=== PATIENT | male | born 1960 | race Caucasian/White ===

== ENCOUNTER 2020-02-05 14:09 | Emergency (ER) | payer OTHER, SELFPAY ==
[2020-02-05] VITALS (10 sets, daily range): BP systolic 131–184; BP diastolic 57–84; PULSE 69–90; RESP 16–40; TEMP 37.1; O2SAT 96–99; BMI 21.5
[2020-02-05 15:07] LABS: COVID19 -Nasal RAPID Negative (Negative)
[2020-02-05 15:09] LABS: Add Manual Diff / Slide Review NO; Basophils Absolute Auto 0 /uL (0-100); Basophils Percent Auto 0.6 % (0-2); Eosinophils Absolute Auto 100 /uL (0-450); Eosinophils Percent Auto 1.3 % (2-4); Hematocrit 41.6 % (41-53); Lymphocytes Absolute Auto 2600 /uL (1100-4500); Lymphocytes Percent Auto 43.1 % (25-40); Mean Corpuscular HGB Conc 33.6 % (30-36); Mean Corpuscular Hemoglobin 33.7 PG (26-34); Mean Corpuscular Volume 100.4 fL (80-100); Monocytes Absolute Auto 500 /uL (0-900); Monocytes Percent Auto 8.7 % (3-14); Neutrophils Absolute Auto 2800 /uL (1500-7000); Neutrophils Percent Auto 46.3 % (50-75); Platelet Count 93 X10^3/uL (150-400); Red Blood Cell Count 4.14 X10^6/uL (4.5-5.9); Red Cell Distribution Width 13.7 % (11.6-14.8)
[2020-02-05 15:19] LABS: Alanine Aminotransferase 297 IU/L (<50); Albumin 4.2 g/dL (3.5-5.0); Albumin Globulin Ratio 1.1 (1.0-2.8); Alkaline Phosphatase 114 U/L (38-126); Aspartate Aminotransferase 241 IU/L (17-59); BUN Creatinine Ratio 18.1 (6-22); Bilirubin Total 0.9 mg/dL (0.2-1.3); Blood Urea Nitrogen 17 mg/dL (9-20); Calcium 8.6 mg/dL (8.4-10.2); Carbon Dioxide 24 mmol/L (22-32); Chloride 108 mmol/L (98-107); Estimated Glomerular Filt Rate > 60.0 mL/min (>60); Globulin 3.8 g/dL (1.7-4.1); Glucose 208 mg/dL (70-100); HEMOLYSIS < 15 (0-50); Lipase 40 U/L (23-300); Potassium 3.7 mmol/L (3.4-5.1); Sodium 139 mmol/L (137-145)
--- NOTE | 2020-02-05 15:28 | ED_ITS ---
HPI - General Adult General Chief complaint: Abdominal Pain Stated complaint: stomach pain//side pain Time Seen by Provider: 02/05/20 14:15 Source: patient Mode of arrival: Ambulatory Limitations: no limitations History of Present Illness HPI narrative: 59-year-old male here for evaluation of several months of diarr hea and also 3-4 weeks of left-sided flank pain. He states that the diarrhea does not seem to improve with anything that he eats. He has not tried any anti diarrheal medications. He has not been on antibiotics. No recent travel. No fevers. His left-sided flank pain has been going on for the past several weeks. He has not tried anything for it. He has no rashes. States that does not change with movement or palpation or bowel movements. Also has other issues that all have been going on for weeks now to include loss of taste and weight loss that has been going on for months. Does not have a primary doctor in the local area. Related Data Previous Rx's Medication Instructions Recorded lidocaine 1 patch TOP DAILY #15 each 02/05/20 Allergies Allergy/AdvReac Type Severity Reaction Status Date / Time No Known Allergies Allergy Verified 02/05/20 15:50 Review of Systems Constitutional Constitutional: Reports fatigue, Denies fever(s) and Denies headache(s) Eyes Eyes: Denies change in vision ENT Ears, Nose, Mouth, and Throat: Denies headache(s), Denies sore throat and Denies throat swelling Comments: Loss of taste Cardiovascular Cardiovascular: Denies chest pain and Denies dyspnea Respiratory Respiratory: Denies dyspnea Gastrointestinal Gastrointestinal: Reports abdominal pain, Reports diarrhea, Denies nausea and Denies vomiting Genitourinary Genitourinary: Denies dysuria, Denies urinary hesitancy and Denies urinary incontinence Genitourinary: Denies dysuria, Denies urinary incontinence and Denies urinary hesitancy Musculoskeletal Comments: Left-sided flank pain Integumentary/Breasts Skin/Breast: Denies lesions and Denies rash Neurologic Neurologic: Denies behavioral changes and Denies headache(s) Psychiatric Psychiatric: Denies behavioral changes Endocrine Endocrine: Reports fatigue Hematologic/Lymphatic Hematologic/Lymphatic: Denies easy bleeding and Denies easy bruising Allergic/Immunologic Allergic/Immunologic: Denies throat swelling Patient History Medical History Diabetes (Acute) Social History lives independently: Yes Exam Initial Vital Signs Initial Vital Signs: Vital Signs Temperature 98.7 F 02/05/20 14:37 Pulse Rate 90 02/05/20 14:37 Respiratory Rate 16 02/05/20 14:37 Blood Pressure 163/81 H 02/05/20 14:37 Pulse Oximetry 99 02/05/20 14:37 Const General: cooperative Limitations: mental status not altered HENMD Head: normal to inspection and normocephalic Chest Chest: No crepitus and No tenderness Resp Effort & Inspection: normal respiratory effort Auscultation: clear to auscultation bilaterally Cardio Rate: regular rate Rhythm: regular rhythm GI Inspection: non-distended Palpation: soft and tender (Left upper quadrant/left flank) Back/Spine/Pelvis Back: CVA tenderness left Skin Lesions: no lesions Rashes: no rashes Neuro General: patient alert and patient awake Cognition: normal cognition Speech: speech normal Extrem General: normal to inspection and capillary refill normal Psych Appearance: grossly normal and well kempt Scores GCS Francoise coma scale eye opening: Spontaneous [place] coma scale verbal response: Orientated [place] coma scale motor response: Obey commands Francoise coma scale total score: 15 Course Orders Ordered: ED Orders 02/05/20 14:10 COVID19 Stat 02/05/20 14:49 Complete Blood Count AUTO DIFF Stat 02/05/20 15:00 Comprehensive Metabolic Panel Stat Lipase Stat 02/05/20 15:29 CT abdomen pelvis w con Stat XR chest 1V Stat 02/05/20 16:30 EKG-12 Lead Stat Discontinued Medications Hydromorphone HCl (Dilaudid) 1 mg IV NOW ONE Stop: 02/05/20 15:30 Last Admin: 02/05/20 15:55 Dose: 1 mg Documented by: CHRISSY Sodium Chloride (Normal Saline 0.9%) 1,000 mls @ 1,000 mls/hr IV BOLUS ONE Stop: 02/05/20 16:28 Last Infusion: 02/05/20 17:00 Dose: 0 mls/hr Documented by: Admin: 02/05/20 15:56 Dose: 1,000 mls/hr Documented by: CHRISSY Ondansetron HCl (Zofran) 4 mg IV NOW ONE Stop: 02/05/20 15:30 Last Admin: 02/05/20 15:55 Dose: 4 mg Documented by: CHRISSY Vital Signs Vital signs: Vital Signs - 8 hr 02/05/20 14:37 02/05/20 14:53 02/05/20 15:00 Temperature 98.7 F Pulse Rate 90 82 82 Respiratory Rate 16 26 H 28 H Blood Pressure 163/81 H 131/57 L Pulse Oximetry 99 97 96 02/05/20 15:30 02/05/20 15:34 02/05/20 15:51 Temperature Pulse Rate 77 82 Respiratory Rate 26 H 40 H Blood Pressure 157/76 H 165/80 H Pulse Oximetry 02/05/20 16:00 02/05/20 16:30 02/05/20 17:00 Temperature Pulse Rate 78 69 71 Respiratory Rate 23 23 33 H Blood Pressure 160/80 H 144/84 H Pulse Oximetry 99 96 02/05/20 17:01 Temperature Pulse Rate 71 Respiratory Rate 27 H Blood Pressure 184/84 H Pulse Oximetry Medical Decision Making Lab Data Lab results reviewed: Yes I reviewed the patient's lab results. Result diagrams: 02/05/20 14:49 02/05/20 15:00 Labs: Lab Results 02/05/20 02/05/20 02/05/20 Range/Units 14:10 14:49 15:00 WBC 6.0 (4.5-11.0) X10^3/uL RBC 4.14 L (4.5-5.9) X10^6/uL Hgb 14.0 (13.5-17.5) g/dL Hct 41.6 (41-53) % MCV 100.4 H (80-100) fL MCH 33.7 (26-34) PG MCHC 33.6 (30-36) % RDW 13.7 (11.6-14.8) % Plt Count 93 L (150-400) X10^3/uL Neut % (Auto) 46.3 L (50-75) % Lymph % (Auto) 43.1 H (25-40) % [place] % (Auto) 8.7 (3-14) % Eos % (Auto) 1.3 L (2-4) % Baso % (Auto) 0.6 (0-2) % Neut # (Auto) 2800 (1436-4821) /uL Lymph # (Auto) 2600 (9908-9078) /uL [place] # (Auto) 500 (0-900) /uL Eos # (Auto) 100 (0-450) /uL Baso # (Auto) 0 (0-100) /uL Sodium 139 (137-145) mmol/L Potassium 3.7 (3.4-5.1) mmol/L Chloride 108 H (98-107) mmol/L Carbon Dioxide 24 (22-32) mmol/L BUN 17 (9-20) mg/dL Creatinine 0.94 (0.66-1.25) mg/dL Estimated GFR > 60.0 (>60) mL/min BUN/Creatinine Ratio 18.1 (6-22) Glucose 208 H (70-100) mg/dL Calcium 8.6 (8.4-10.2) mg/dL Total Bilirubin 0.9 (0.2-1.3) mg/dL AST 241 H (17-59) IU/L ALT 297 H (<50) IU/L Alkaline Phosphatase 114 (38-126) U/L Total Protein 8.0 (6.3-8.2) g/dL Albumin 4.2 (3.5-5.0) g/dL Globulin 3.8 (1.7-4.1) g/dL Albumin/Globulin Ratio 1.1 (1.0-2.8) Lipase 40 (23-300) U/L COVID-19 PCR Negative (Negative) Urine Dip Bedside Urine Glucose Negative Bedside Urine Bilirubin - Negative Bedside Urine Ketone +/- 5 Urine Specific [place] 1.030 Bedside Urine Occult Blood +++ Bedside Urine pH 6.0 Bedside Urine Protein ++ 100 Bedside Urine Urobilinogen - Negative Bedside Urine Nitrite - Negative Bedside Urine Leukocytes - Negative Esterase Point of care testing: Urine Dip Bedside Urine Glucose Negative Bedside Urine Bilirubin - Negative Bedside Urine Ketone +/- 5 Urine Specific [place] 1.030 Bedside Urine Occult Blood +++ Bedside Urine pH 6.0 Bedside Urine Protein ++ 100 Bedside Urine Urobilinogen - Negative Bedside Urine Nitrite - Negative Bedside Urine Leukocytes - Negative Esterase Imaging Data CT scan - abdomen/pelvis: Radiologist's Impression: [address] [address] [address] Scan Report Signed Patient: Jazmin MatthewsHair#: [id number] : [id number]:[id number] Age/Sex: 59 / MDate of Service: 02/05/20 Loc: ED Accession Number: [id number] Procedure: CT abdomen pelvis w con Ordering Provider: Jet Ace D.O. PROCEDURE: CT ABDOMEN PELVIS W CON INDICATIONS: Left-sided abdominal pain TECHNIQUE: After the administration of intravenous contrast, 5 mm thick sections acquired from the diaphragm to the symphysis. 5 mm coronal and sagittal reformats were acquired. For radiation dose reduction, the following was used: automated exposure control, adjustment of mA and/or kV according to patient size. COMPARISON: None. FINDINGS: Image quality: Excellent. ABDOMEN: Lung bases: Lung bases are clear. Heart size is normal. [id number] atherosclerotic seen. Solid organs: Liver is enlarged with hepatic steatosis. No discrete hepatic lesion. Gallbladder is surgically absent.. Biliary system is non dilated. Pancreas enhances normally. Spleen is normal in size and enhancement. No adrenal nodules. Kidneys demonstrate normal size and enhancement, without hydronephrosis. Tiny bilateral nonobstructing renal calculi are seen measures up to 3 mm in size. Peritoneum and bowel: There is no bowel obstruction. Questionable wall thickening involving ascending colon and transverse colon is seen. Mild wall thickening involving proximal to mid portion of descending colon is also noted. Finding may be due to under distension versus infectious or inflammatory colitis. No abscess collection. No free fluid or free air. No evidence of acute appendicitis or diverticulitis. Nodes and vessels: No retroperitoneal or mesenteric adenopathy by size criteria. Aorta and inferior vena cava are normal in size. Miscellaneous: No ventral hernias. PELVIS: Genitourinary: Bladder wall thickness is normal. Miscellaneous: No inguinal hernias or adenopathy. Bones: No suspicious bony lesions. No vertebral body compression fractures. IMPRESSION: 1. Questionable colonic wall thickening predominantly involving ascending colon, transverse colon and proximal to mid descending colon which may be due to under distension. Low-grade infectious inflammatory colitis cannot be excluded. No e vidence of acute appendicitis or diverticulitis. No free fluid or free air. No bowel obstruction. 2. Hepatomegaly and mild hepatic steatosis. No discrete hepatic lesion. 3. Patient is status post cholecystectomy. Dictated by: Cesario García M.D. on 02/05/2020 at 15:07 Approved by: Cesario García M.D. on 02/05/2020 at 15:11 Chest x-ray: Radiologist's Impression: [address] [address] XRay Report Signed Patient: Deng Matthews#: [id number] : 2Acct:[id number] Age/Sex: 59 / MDate of Service: 02/05/20 Loc: ED Accession Number: [id number] Procedure: XR chest 1V Ordering Provider: Jet Ace D.O. PROCEDURE: XR CHEST 1V INDICATIONS: Left lower chest pain TECHNIQUE: One view of the chest was acquired. COMPARISON: None. FINDINGS: Surgical changes and devices: None. Lungs and pleura: Lungs are clear. No pleural effusions or pneumothorax. Mediastinum: Mediastinal contours appear normal. Heart size is normal. Bones and chest wall: No suspicious bony lesions. Overlying soft tissues appear unremarkable. IMPRESSION: No acute cardiopulmonary pathology. Dictated by: Cesario García M.D. on 02/05/2020 at 15:05 Approved by: Cesario García M.D. on 02/05/2020 at 15:06 ECG Data Attestation: I personally reviewed and interpreted this ECG as follows: Prior ECG tracings: not available for review Interpretation: Sinus rhythm Ventricular rate is 70 Normal axis Normal QRS Normal QTC No ST T wave changes MDM Narrative Medical decision making narrative: Patient did have fairly significant left- sided flank pain and left upper quadrant pain. He seemed to have tenderness with only very light touch to the area. This did make a somewhat concerned about zoster however there is no rash in the area. Also his symptoms been going on for several weeks now. CT scan of his abdomen does show what appears to be a colitis. This is also not new. I feel we can hold on antibiotics. We did discuss use of anti diarrheal medications. The rest of his exam is fairly unremarkable. No indication for antibiotics. No indication for surgical cons ultation. I did inform him that if he was going to be in this area for a prolonged period time he should establish a primary provider. If he is going to return home and eats a talk with his primary provider about following up with Gastroenterology. The expressed understanding and agreement. Discharge Plan Departure Patient Disposition: Home Clinical Impression: Colitis, Acute left flank pain Discharge Date/Time: 02/05/20 17:42 Instructions: DI for Colitis Activity Restrictions/Additional Instructions: I do feel that you to help with your issues that you are having an to refer you to a team truck driver. If you are going to spend any more extended time here in the local area you can contact [phone] help you establish a primary provider. Use the lidocaine patches as needed. I also recommend that you consider using an anti diarrheal medicine such as loperamide/Imodium. You can purchase this [id number]. Return emergency department for any new or worsening symptoms with Prescriptions: New lidocaine 5 % adhesive patch,medicated 1 patch TOP DAILY Qty: 15 RF: 0
[2020-02-05] MEDS: HYDROMORPHONE 1 MG INJ IV (15:55)
[2020-02-05] MEDS: ONDANSETRON 4 MG/2 ML INJ IV (15:55)
[2020-02-05] MEDS: SODIUM CHLORIDE 0.9% 1,000 ML 1000 ML IV (15:56)
== END 2020-02-05 17:42 | disposition home or self-care (01) ==
PROVIDERS: Emergency Provider Emergency Medicine
DX: K52.9 Noninfective gastroenteritis and colitis, unspecified (principal); R10.12 Left upper quadrant pain; R53.83 Other fatigue; R07.9 Chest pain, unspecified
CPT/HCPCS: 36415; 71045; 74177; 80053; 81003; 83690; 85025; 87635; 93005; 96361; 96374; 96375; 99284; J1170; J2405; Q9967

== ENCOUNTER 2020-05-31 20:55 | Observation (INO) | payer OTHER, SELFPAY ==
[2020-05-31] VITALS (19 sets, daily range): BP systolic 158–241; BP diastolic 84–114; PULSE 66–85; RESP 14–44; TEMP 37.4; O2SAT 95–99; BMI 23.0
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
[2020-05-31] MEDS: ONDANSETRON 4 MG/2 ML INJ (21:08)
[2020-05-31] MEDS: LACTATED RINGERS 2,259 ML 753 ML IV (21:09)
[2020-05-31 21:16] LABS: INR 1.1 (0.9-1.3); Prothrombin Time 12.8 SECONDS (10.1-12.7)
[2020-05-31 21:19] LABS: Add Manual Diff / Slide Review NO; Basophils Absolute Auto 0 /uL (0-100); Basophils Percent Auto 0.2 % (0-2); Eosinophils Absolute Auto 0 /uL (0-450); Hematocrit 42.2 % (41-53); Hemoglobin 14.3 g/dL (13.5-17.5); Lymphocytes Absolute Auto 1800 /uL (1100-4500); Lymphocytes Percent Auto 21.4 % (25-40); Mean Corpuscular HGB Conc 33.9 % (30-36); Mean Corpuscular Hemoglobin 33.4 PG (26-34); Mean Corpuscular Volume 98.6 fL (80-100); Monocytes Absolute Auto 600 /uL (0-900); Monocytes Percent Auto 7.4 % (3-14); Neutrophils Absolute Auto 5800 /uL (1500-7000); Platelet Count 122 X10^3/uL (150-400); Red Blood Cell Count 4.28 X10^6/uL (4.5-5.9); Red Cell Distribution Width 13.1 % (11.6-14.8); White Blood Cell Count 8.2 X10^3/uL (4.5-11.0)
[2020-05-31 21:22] LABS: Ketones (Beta-Hydroxybutyrate) 0.94 mmol/L (<0.27)
[2020-05-31 21:23] LABS: PTT Partial Thromboplastin Tim 38 SECONDS (26.4-36.2)
[2020-05-31 21:32] LABS: COVID19 -Nasal RAPID Negative (Negative)
[2020-05-31 21:33] LABS: Alanine Aminotransferase 106 IU/L (<50); Albumin 4.1 g/dL (3.5-5.0); Alkaline Phosphatase 127 U/L (38-126); Aspartate Aminotransferase 72 IU/L (17-59); BUN Creatinine Ratio 13.8 (6-22); Bilirubin Total 1.1 mg/dL (0.2-1.3); Blood Urea Nitrogen 9 mg/dL (9-20); Calcium 8.9 mg/dL (8.4-10.2); Carbon Dioxide 22 mmol/L (22-32); Chloride 104 mmol/L (98-107); Creatine Kinase 69 U/L (55-170); Estimated Glomerular Filt Rate > 60.0 mL/min (>60); Globulin 4.2 g/dL (1.7-4.1); Glucose 245 mg/dL (70-100); HEMOLYSIS < 15 (0-50); Potassium 3.4 mmol/L (3.4-5.1); Sodium 139 mmol/L (137-145); Total Protein 8.3 g/dL (6.3-8.2)
[2020-05-31 21:38] LABS: Lactate (Lactic Acid) 2.6 mmol/L (0.7-2.1)
[2020-05-31 21:42] LABS: NT-proBNP (BNP-Adult 18+) 1250 pg/mL (<125)
[2020-05-31 21:45] LABS: Troponin I < 0.012 ng/mL (0.01-0.034)
[2020-05-31 22:02] LABS: Lipase 39 U/L (23-300)
[2020-05-31] MEDS: MORPHINE 4 MG/ML INJ IV (22:21)
[2020-05-31 22:44] LABS: RBC Urine 30-100/HPF (0-5/HPF); Squamous Epithelial Cell Urine 0-1 /HPF (0-5/HPF); WBC Urine 0-1/HPF (0-5/HPF)
[2020-05-31 22:45] LABS: Bacteria Urine Occasional (0-1); Culture Indicated Urine Cult Not Indicated; Hyaline Casts Urine 0-1/LPF; Mucus Urine 2+ (Negative)
--- NOTE | 2020-05-31 23:06 | DI.CT.S_ITS ---
PROCEDURE: CT ABDOMEN PELVIS W CON INDICATIONS: abdominal pain, v/d x 2 days TECHNIQUE: After the administration of intravenous contrast, 5 mm thick sections acquired from the diaphragm to the symphysis. 5 mm coronal and sagittal reformats were acquired. For radiation dose reduction, the following was used: automated exposure control, adjustment of mA and/or kV according to patient size. COMPARISON: [facility], CT, CT ABDOMEN PELVIS W CON, 02/05/2020, 15:39. FINDINGS: Image quality: Excellent. ABDOMEN: Lung bases: Lung bases are clear. Heart size is normal. Coronary artery calcifications, advanced for patient age. Solid organs: The liver has a nodular surface contour and relative enlargement of the left lobe consistent with cirrhosis. No focal liver masses. Gallbladder is surgically absent. Prominent biliary tree post cholecystectomy, not significantly changed, without obstructing gallbladder mass. No radiopaque distal common duct stone seen. Pancreas enhances normally. Spleen is normal in size and enhancement. No adrenal nodules. There are 2 small nonobstructing left renal stones. There is a tiny nonobstructing right upper pole stone. There is mild right hydronephrosis. The right ureter is dilated to the level of the bladder. There is a 3 mm calculus in the base of the bladder.. Peritoneum and bowel: Bowel loops demonstrate normal wall thickness and caliber. No free fluid or air. Colonic stool contents are liquid. There is no colonic wall thickening noted. Mild sigmoid diverticulosis without evidence of diverticulitis. Nodes and vessels: No retroperitoneal or mesenteric adenopathy by size criteria. There are multiple prominent periportal and portacaval. Aorta and inferior vena cava are normal in size. Diffuse atherosclerotic calcifications. Miscellaneous: No ventral hernias. PELVIS: Genitourinary: Bladder wall thickness is normal. Miscellaneous: No inguinal hernias or adenopathy. Bones: No suspicious bony lesions. No vertebral body compression fractures. There is lumbar canal stenosis L4-L5 and L5-S1. IMPRESSION: 1. Findings likely represent recent passage of a right ureteral stone. There is a 3 mm stone in the base of bladder. There is right hydronephrosis. 2. Bilateral small nonobstructing stones. 3. Liquid colonic stool contents consistent with diarrhea. 4. Cirrhosis. 5. Remote cholecystectomy. 6. Advanced coronary artery calcifications for patient age. 7. Abdominal atherosclerosis. 8. Lumbar canal stenosis at L4-L5 and L5-S1. Comment: Final report is concordant with preliminary interpretation provided by [facility]. Dictated by: Chandana Albarado M.D. on 06/01/2020 at 5:32 Approved by: Chandana Albarado M.D. on 06/01/2020 at 5:40
[2020-05-31 23:20] LABS: Reflexed Lactate in 2 Hours Y
[2020-05-31 23:22] LABS: HCO3 ABG 21 mmol/L (22-26); Oxygen Saturation ABG 99 % (95-100); PCO2 ABG 30.7 mmHg (35-45); PO2 ABG 110 mmHg (80-100); TCO2 ABG 22 mmol/L (21-31); pH ABG 7.45 (7.35-7.45)
[2020-05-31 23:23] LABS: Fractionated Inspired Oxygen 21
[2020-06-01] VITALS (17 sets, daily range): BP systolic 153–186; BP diastolic 73–89; PULSE 54–71; RESP 16–32; TEMP 36.8–37.1; O2SAT 93–98; BMI 24.4
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
[2020-06-01 01:39] LABS: Amylase 61 U/L (30-110)
[2020-06-01 02:07] LABS: Creatinine Urine Random 158.6 mg/dL
[2020-06-01] MEDS: SILVER SULFADIAZINE 1% CREAM 25 GM 1 APPLIC TOP (02:15)
[2020-06-01] MEDS: LACTATED RINGERS 1,000 ML 100 ML IV ×3 (02:18→23:52)
[2020-06-01] MEDS: ACETAMINOPHEN 325 MG TABLET 650 MG PO (02:54)
[2020-06-01] MEDS: ONDANSETRON 4 MG/2 ML INJ IV (02:55)
[2020-06-01] MEDS: MORPHINE 4 MG/ML INJ IV ×5 (03:27→22:22)
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
[2020-06-01 06:41] LABS: Hematocrit 35.1 % (41-53); Hemoglobin 11.8 g/dL (13.5-17.5); Red Blood Cell Count 3.56 X10^6/uL (4.5-5.9); White Blood Cell Count 8.6 X10^3/uL (4.5-11.0)
[2020-06-01 06:42] LABS: Add Manual Diff / Slide Review NO; Basophils Absolute Auto 0 /uL (0-100); Basophils Percent Auto 0.4 % (0-2); Eosinophils Absolute Auto 0 /uL (0-450); Eosinophils Percent Auto 0.2 % (2-4); Lymphocytes Absolute Auto 2500 /uL (1100-4500); Mean Corpuscular HGB Conc 33.6 % (30-36); Mean Corpuscular Hemoglobin 33.2 PG (26-34); Mean Corpuscular Volume 98.9 fL (80-100); Monocytes Absolute Auto 700 /uL (0-900); Monocytes Percent Auto 8.4 % (3-14); Neutrophils Absolute Auto 5300 /uL (1500-7000); Platelet Count 83 X10^3/uL (150-400); Red Cell Distribution Width 13.2 % (11.6-14.8)
[2020-06-01 06:43] LABS: Albumin 3.3 g/dL (3.5-5.0); BUN Creatinine Ratio 17.5 (6-22); Blood Urea Nitrogen 10 mg/dL (9-20); Calcium 8.4 mg/dL (8.4-10.2); Carbon Dioxide 26 mmol/L (22-32); Chloride 103 mmol/L (98-107); Cholesterol 87 mg/dL (140-199); Estimated Glomerular Filt Rate > 60.0 mL/min (>60); Glucose 185 mg/dL (70-100); HDL Cholesterol 28 mg/dL (40-60); HEMOLYSIS < 15 (0-50); LDL Cholesterol Calculated 46 mg/dL (<100); Magnesium 1.3 mg/dL (1.6-2.3); Phosphorous 3.6 mg/dL (2.5-4.5); Potassium 3.2 mmol/L (3.4-5.1); Sodium 136 mmol/L (137-145); Triglycerides 65 mg/dL (35-150)
[2020-06-01 06:50] LABS: NT-proBNP (BNP-Adult 18+) 1410 pg/mL (<125)
[2020-06-01 06:58] LABS: Procalcitonin 0.09 ng/mL (<0.5)
[2020-06-01] MEDS: INSULIN ASPART 100 UNIT/ML INSULN PEN SUBCUT ×4 (08:05→21:04)
--- NOTE | 2020-06-01 09:25 | PC.NURSE ---
Consulted MD regarding pt's platelet count (83,000) and order for Lovenox. Per provider, DC Lovenox.
[2020-06-01] MEDS: POTASSIUM CHLORIDE 20 MEQ TAB 40 MEQ PO (10:00)
[2020-06-01] MEDS: MAGNESIUM SULFATE 1 GM in DEXTROSE 5 % IN WATER 100 ML 102 ML IV (10:00)
--- NOTE | 2020-06-01 10:24 | P.EN_ITS ---
Event Note Date Patient Seen: 06/01/20 Event Note: Patient was seen in follow-up from his admission earlier this mo rning. He states he is feeling much better has no abdominal pain has minimal nausea and has requested and anti emetic Vital signs stable he is afebrile POC glucose is 202, 163. Hemoglobin A1c 7.0 Magnesium was 1.3 potassium 3.2 Patient with evidence of abnormal LFTs. His CT scan revealed a nodular liver consistent with hepatic cirrhosis PLAN Replace magnesium and potassium Follow-up BMP and magnesium level in a.m. Continue workup and management as started on admission earlier this morning
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
--- NOTE | 2020-06-01 18:33 | PC.NURSE ---
Shift note: Removed old dressing, cleansed wound with normal saline and gently wiped wound to remove old cream and drainage. Took pictures using hospital camera and notified Coordinator. Applied silvadene cream, xeroform gauze, and foam non-adherent dressing. Wrapped in kerlex and then randall wrap. Premedicated with morphine prior to dressing change per MAY. Patient tolerated well.
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
[2020-06-02] MEDS: MORPHINE 4 MG/ML INJ IV ×2 (02:12→08:16)
[2020-06-02 02:22] VITALS: TEMP 36.8
[2020-06-02 05:16] VITALS: BP 161/85; PULSE 65; RESP 16; TEMP 36.9; O2SAT 95
[2020-06-02 05:43] LABS: Add Manual Diff / Slide Review NO; Basophils Absolute Auto 0 /uL (0-100); Basophils Percent Auto 0.5 % (0-2); Eosinophils Absolute Auto 100 /uL (0-450); Eosinophils Percent Auto 1.4 % (2-4); Hematocrit 36.9 % (41-53); Hemoglobin 12.3 g/dL (13.5-17.5); Lymphocytes Absolute Auto 2200 /uL (1100-4500); Lymphocytes Percent Auto 36.8 % (25-40); Mean Corpuscular HGB Conc 33.3 % (30-36); Mean Corpuscular Hemoglobin 33.1 PG (26-34); Mean Corpuscular Volume 99.4 fL (80-100); Monocytes Absolute Auto 600 /uL (0-900); Monocytes Percent Auto 9.4 % (3-14); Neutrophils Absolute Auto 3100 /uL (1500-7000); Neutrophils Percent Auto 51.9 % (50-75); Platelet Count 81 X10^3/uL (150-400); Red Blood Cell Count 3.71 X10^6/uL (4.5-5.9); Red Cell Distribution Width 13.4 % (11.6-14.8)
[2020-06-02 05:53] LABS: Albumin 3.3 g/dL (3.5-5.0); BUN Creatinine Ratio 14.9 (6-22); Blood Urea Nitrogen 10 mg/dL (9-20); Calcium 8.5 mg/dL (8.4-10.2); Carbon Dioxide 28 mmol/L (22-32); Chloride 104 mmol/L (98-107); Estimated Glomerular Filt Rate > 60.0 mL/min (>60); Glucose 158 mg/dL (70-100); HEMOLYSIS < 15 (0-50); Phosphorous 3.3 mg/dL (2.5-4.5); Potassium 3.9 mmol/L (3.4-5.1); Sodium 136 mmol/L (137-145)
[2020-06-02 05:54] LABS: Alanine Aminotransferase 138 IU/L (<50); Albumin 3.3 g/dL (3.5-5.0); Albumin Globulin Ratio 0.9 (1.0-2.8); Alkaline Phosphatase 88 U/L (38-126); Aspartate Aminotransferase 134 IU/L (17-59); BUN Creatinine Ratio 15.2 (6-22); Bilirubin Total 0.7 mg/dL (0.2-1.3); Blood Urea Nitrogen 10 mg/dL (9-20); Calcium 8.6 mg/dL (8.4-10.2); Carbon Dioxide 28 mmol/L (22-32); Chloride 104 mmol/L (98-107); Estimated Glomerular Filt Rate > 60.0 mL/min (>60); Globulin 3.5 g/dL (1.7-4.1); Glucose 158 mg/dL (70-100); HEMOLYSIS < 15 (0-50); Magnesium 1.4 mg/dL (1.6-2.3); Potassium 3.9 mmol/L (3.4-5.1); Sodium 136 mmol/L (137-145); Total Protein 6.8 g/dL (6.3-8.2)
[2020-06-02 08:00] VITALS: BP 173/78; PULSE 65; RESP 16; TEMP 36.9; O2SAT 96
[2020-06-02] MEDS: ONDANSETRON 4 MG/2 ML INJ IV (08:15)
[2020-06-02] MEDS: MAGNESIUM OXIDE 400 MG TABLET PO (09:27)
[2020-06-02] MEDS: DOCUSATE 100 MG CAPSULE PO (09:27)
[2020-06-02] MEDS: INSULIN ASPART 100 UNIT/ML INSULN PEN SUBCUT ×2 (09:28→12:57)
[2020-06-02 09:47] VITALS: O2SAT 97
[2020-06-02 09:48] VITALS: BP 140/98; PULSE 72; RESP 18; O2SAT 97
[2020-06-02] MEDS: SILVER SULFADIAZINE 1% CREAM 50 GM 1 APPLIC TOP (10:26)
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
--- NOTE | 2020-06-02 14:14 | PC.NURSE ---
VSS. B, given 3 units novolog. Pain in right low back relieved with IV morphine and nausea relieved with IV zofran. Iv removed. Given discharged instructions, questions answered. Escorted to personal vehicle by wheelchair, driving home. Off of unit at 1:40
== END 2020-06-02 13:40 | disposition home or self-care (01) ==
LOC: ED 06-01 01:08 → AC 06-01 01:11
PROVIDERS: Internal Medicine; Admitting Provider Nurse Practitioner Family; Emergency Provider Emergency Medicine; Referring Provider Emergency Medicine; Visit Provider Nurse Practitioner Family
DX: E86.0 Dehydration (principal); E87.6 Hypokalemia; T24.332A Burn of third degree of left lower leg, initial encounter; A49.01 Methicillin susceptible Staphylococcus aureus infection, unspecified site; E10.42 Type 1 diabetes mellitus with diabetic polyneuropathy; R03.0 Elevated blood-pressure reading, without diagnosis of hypertension; B18.2 Chronic viral hepatitis C; K74.60 Unspecified cirrhosis of liver; N20.0 Calculus of kidney; F17.210 Nicotine dependence, cigarettes, uncomplicated; Z79.4 Long term (current) use of insulin; Z20.822 Contact with and (suspected) exposure to COVID-19
CPT/HCPCS: 36415; 36600; 74022; 74177; 80053; 80061; 80069; 81003; 81015; 82009; 82150; 82272; 82550; 82570; 82805; 82962; 83036; 83605; 83690; 83735; 83880; 84145; 84484; 85025; 85610; 85730; 87040; 87070; 87075; 87077; 87086; 87147; 87186; 87205; 87635; 93005; 96361; 96372; 96374; 96375; 96376; 99284; C9803; G0378; J2270; J2405; J3475; Q9967